=== PATIENT | male | born 1965 ===

== ENCOUNTER 2022-05-17 16:38 | Emergency (ER) | payer SELFPAY ==
--- NOTE | 2022-05-17 19:20 | XRay Report ---
CHEST 2 VIEWS INDICATION / CLINICAL INFORMATION: duong fell on chest, pain. COMPARISON: None available. FINDINGS: SUPPORT DEVICES: None. HEART / MEDIASTINUM: No significant abnormality. LUNGS / PLEURA: No significant pulmonary or pleural abnormality. No pneumothorax. ADDITIONAL FINDINGS: No acute skeletal abnormality. IMPRESSION: 1. No acute findings. Signer Name: Sheri Reid MD Signed: 05/17/2022 7:15 PM Workstation Name: [id number]
[2022-05-18] MEDS ORDERED: ASPIRIN 81 MG TAB CHEW PO ONE (05:27)
--- NOTE | 2022-05-18 06:25 | XRay Report ---
CHEST 1 VIEW 05/18/2022 5:05 AM INDICATION / CLINICAL INFORMATION: Chest Pain. COMPARISON: 2 views of the chest from 05/17/2022. FINDINGS: SUPPORT DEVICES: None. HEART / MEDIASTINUM: No significant abnormality. LUNGS / PLEURA: No significant pulmonary abnormality. No significant pleural effusion. No pneumothora x. ADDITIONAL FINDINGS: No significant additional findings. IMPRESSION: 1. No acute abnormality of the chest. Signer Name: Jose Alberto Scales MD Signed: 05/18/2022 6:21 AM Workstation Name: [id number]
[2022-05-18] MEDS ORDERED: SODIUM CHLORIDE 0.9% 1000 ML 1,000 ML IV ONE (06:35)
[2022-05-18] MEDS ORDERED: KETOROLAC 30 MG/1 ML INJ IV ONE (06:35)
[2022-05-18 06:41] LABS: Basophils # (Auto) 0.1 K/mm3 (0.0-0.1); Basophils % (Auto) 0.4 % (0.0-1.8); Eosinophils # (Auto) 0.8 K/mm3 (0.0-0.4); Eosinophils % (Auto) 6.3 % (0.0-4.3); Hematocrit 49.2 % (35.5-45.6); Hemoglobin 16.7 gm/dl (11.8-15.2); Lymphocytes % (Auto) 15.8 % (13.4-35.0); Mean Corpuscular HGB Conc 34 % (32-34); Mean Corpuscular Volume 93 fl (84-94); Monocytes # (Auto) 1.3 K/mm3 (0.0-0.8); Monocytes % (Auto) 10.2 % (0.0-7.3); Platelet Count 195 K/mm3 (140-440); Red Cell Distribution Width 13.6 % (13.2-15.2)
[2022-05-18 06:56] LABS: Alanine Aminotransferase 23 units/L (7-56); Albumin 4.9 g/dL (3.9-5); Blood Urea Nitrogen 7 mg/dL (9-20); Calcium 9.4 mg/dL (8.4-10.2); Hemolysis Index 26
[2022-05-18 07:08] LABS: BUN/Creatinine Ratio 12
--- NOTE | 2022-05-18 10:24 | Emergency Department Report ---
ED Chest Pain HPI - General Chief Complaint: Chest Pain Stated Complaint: CHEST PAIN PUI?: No Time Seen by Provider: 05/18/22 06:34 Source: patient Mode of arrival: Ambulatory Limitations: No Limitations - History of Present Illness Initial Comments: Pt states ply-wood fell on top of him, C/O pain to chest -: Sudden, hour(s) Pain Radiation: none Severity: mild Severity scale (0 -10): 4 Quality: aching Improves With: nothing Worsens With: nothing Treatments Prior to Arrival: none - Related Data Allergies Allergy/AdvReac Type Severity Reaction Status Date / Time No Known Allergies Allergy Unverified 05/17/22 18:04 Heart Score - HEART Score History: Slightly suspicious EKG: Normal Age: 45-65 Risk factors: 1-2 risk factors Troponin: < normal limit HEART Score: 2 - EKG Read Time Time EKG Completed: 05:45 EKG Read Time: 05:45 - Critical Actions Critical Actions: 0-3 pts:0.9-1.7%risk of adverse cardiac event.Candidate for discharge ED Review of Systems ROS: Stated complaint: CHEST PAIN Other details as noted in HPI ED Past Medical Hx - Past Medical History Previous Medical History?: No - Surgical History Past Surgical History?: No ED Physical Exam - General Limitations: No Limitations General appearance: alert, in no apparent distress - Head Head exam: Present: normocephalic, other (abrasion and bruise ) - Eye Eye exam: Present: normal appearance - ENT ENT exam: Present: mucous membranes moist - Neck Neck exam: Present: normal inspection - Respiratory Respiratory exam: Present: normal lung sounds bilaterally, chest wall tend erness. Absent: respiratory distress - Cardiovascular Cardiovascular Exam: Present: regular rate, normal rhythm. Absent: systolic murmur, diastolic murmur, rubs, gallop - GI/Abdominal GI/Abdominal exam: Present: soft, normal bowel sounds - Rectal Rectal exam: Present: deferred - Extremities Exam Extremities exam: Present: normal inspection - Back Exam Back exam: Present: normal inspection - Neurological Exam Neurological exam: Present: alert, oriented X3 - Psychiatric Psychiatric exam: Present: normal affect, normal mood - Skin Skin exam: Present: warm, dry, intact, normal color. Absent: rash ED Course Vital Signs 05/17/22 05/18/22 18:02 07:29 Temperature 98.6 F 97.8 F Pulse Rate 109 H 83 Respiratory 18 20 Rate Blood Pressure 148/85 125/84 [Left] O2 Sat by Pulse 99 99 Oximetry ED Medical Decision Making - Lab Data Result diagrams: 05/18/22 05:47 05/18/22 05:47 - Radiology Data Radiology results: report reviewed, image reviewed - Medical Decision Making x ray negative , vss no distress Critical care attestation.: If time is entered above; I have spent that time in minutes in the direct care of this critically ill patient, excluding procedure time. ED Disposition Clinical Impression: Chest wall pain, Chest wall contusion Disposition: 01 HOME / SELF CARE / HOMELESS Is pt being admited?: No Does the pt Need Aspirin: No Condition: Stable Instructions: Nonspecific Chest Pain, Adult, Contusion Referrals: ALLIE MORELAND MD [Primary Care Provider] - 3-5 Days Print Language: IRISH
[2022-05-18 10:40] VITALS: BP 121/83
--- NOTE | 2022-05-20 16:47 | Electrocardiograph Report ---
[facility] Test Date: 2022-05-18 Test Time: 05:45:58 Pat Name: OTONIEL MERRITT Department: Room: Gender: M Construction Scheduler: KONG : 1965 Requested By: JUAN J HAMMONDS Order Number: [id number] Reading MD: Mary Jo Lovelace Measurements Intervals [place] Rate: 91 P: 61 NE: 135 QRS: 61 QRSD: 87 T: 20 QT: 360 QTc: 443 Interpretive Statements Sinus rhythm Probable left atrial enlargement Probable left ventricular hypertrophy No previous ECG available for comparison Electronically Signed On 05-20-2022 16:47:28 EDT by Mary Jo Lovelace
== END 2022-05-18 10:40 | disposition home or self-care (01) ==
LOC: ED 16:38
DX: R07.9 Chest pain, unspecified (principal)
CPT/HCPCS: 36415; 71045; 71046; 80053; 82962; 83690; 84484; 85025; 93005; 96361; 96374; 99284; J1885; J7030